=== PATIENT | male | born 1955 | race Caucasian/White ===

== ENCOUNTER 2018-07-21 12:16 | Inpatient (IN) | payer BC, OTHER ==
[~2018-07-21] VITALS: Ht 152.4 cm; Wt 67.7 kg
[2018-07-21 13:22] LABS: CLARITY URINE CLEAR (CLEAR); COLOR URINE YELLOW (YELLOW); KETONES URINE NEGATIVE (NEGATIVE); LEUKOCYTE ESTERASE URINE NEGATIVE (NEGATIVE); NITRITE URINE NEGATIVE (NEGATIVE); OCCULT BLOOD URINE NEGATIVE (NEGATIVE); PROTEIN URINE NEGATIVE (NEGATIVE); SPECIFIC GRAVITY URINE 1.015 (1.005-1.030); UROBILINOGEN URINE 0.2 E.U./dL (0.2-1.0)
[2018-07-21] MEDS ORDERED: MORPHINE SULFATE 4 MG/ML CPJ (NOT FOR IM USE) IV STA (17:32)
[2018-07-21] MEDS ORDERED: ONDANSETRON HCL 4MG/2ML INJ IV STA (17:32)
[2018-07-21] MEDS ORDERED: FAMOTIDINE 20MG/2ML VIAL IV STA (17:32)
[2018-07-21] MEDS ORDERED: LORAZEPAM 2MG/ML CPJ IV ONE (17:45)
[2018-07-21 17:59] LABS: CHLORIDE 110 mEq/L (98-107)
[2018-07-21 18:03] LABS: ETHANOL BLOOD < 10 mg/dL
[2018-07-21 18:05] LABS: PROTHROMBIN TIME 9.9 sec (9.1-11.1)
[2018-07-21 18:08] LABS: BASOPHILS % 0.9 % (0.0-2.0); EOSINOPHILS % 11.6 % (0.0-5.0); HEMATOCRIT. 44.1 % (42.0-52.0); HEMOGLOBIN. 14.6 g/dL (14.0-18.0); LYMPHOCYTES % 25.1 % (20.0-50.0); MEAN CORPUSCULAR HEMOGLOBIN 31.4 pg (28.0-32.0); MEAN CORPUSCULAR VOLUME 95.1 fL (80.0-94.0); MEAN PLATELET VOLUME 9.1 fl (7.4-10.4); MONOCYTES % 5.2 % (2.0-8.0); NEUTROPHILS % 57.2 % (40.0-76.0); PLATELET 282 x1000/uL (130-400); RED BLOOD CELL COUNT 4.64 mill/uL (4.7-6.1); RED CELL DISTRIBUTION WIDTH 13.9 % (11.6-14.6)
[2018-07-21] MEDS ORDERED: ASPIRIN 81MG TABLET PO ONE (18:45)
[2018-07-21] MEDS ORDERED: CLONIDINE 0.1MG TABLET PO PRN (20:45)
[2018-07-21] MEDS ORDERED: ACETAMINOPHEN 325MG TABLET PO PRN (20:45)
[2018-07-21] MEDS ORDERED: MAGNESIUM/ALUMINUM HYDROXIDE/SIMETHICONE 30ML UDC PO PRN (20:45)
[2018-07-21] MEDS ORDERED: ONDANSETRON HCL 4MG/2ML INJ IV PRN (20:45)
[2018-07-21] MEDS ORDERED: DIPHENHYDRAMINE 50MG/ML VIAL IV PRN (20:45)
[2018-07-21] MEDS ORDERED: HYDROMORPHONE HCL/PF 2MG/ML CPJ IV PRN (21:00)
[2018-07-21] MEDS ORDERED: KETOROLAC 30MG/ML VIAL IV PRN (21:00)
[2018-07-22] MEDS ORDERED: ENOXAPARIN 80MG/0.8ML SYR SUBCUT NR (00:30)
[2018-07-22] MEDS: DEXT 5%/0.45% NACL 1000ML 1,000 ML IV SCH ×2 (03:15→20:39)
[2018-07-22 05:26] LABS: BASOPHILS % 0.7 % (0.0-2.0); EOSINOPHILS % 13.7 % (0.0-5.0); HEMATOCRIT. 41.7 % (42.0-52.0); HEMOGLOBIN. 13.7 g/dL (14.0-18.0); LYMPHOCYTES % 16.5 % (20.0-50.0); MEAN CORPUSCULAR HEMOGLOBIN 31.8 pg (28.0-32.0); MEAN CORPUSCULAR VOLUME 96.6 fL (80.0-94.0); MEAN PLATELET VOLUME 9.5 fl (7.4-10.4); MONOCYTES % 6.5 % (2.0-8.0); NEUTROPHILS % 62.6 % (40.0-76.0); PLATELET 242 x1000/uL (130-400); RED BLOOD CELL COUNT 4.32 mill/uL (4.7-6.1); RED CELL DISTRIBUTION WIDTH 14.1 % (11.6-14.6)
[2018-07-22 05:29] LABS: CHLORIDE 112 mEq/L (98-107)
[2018-07-22 09:30] VITALS: BP 151/79
[2018-07-22] MEDS: FAMOTIDINE 20MG/2ML VIAL IV SCH ×2 (09:34→20:32)
[2018-07-22 09:47] LABS: T4 FREE 0.88 ng/dL (0.76-1.46)
[2018-07-22 12:00] VITALS: BP 154/79
[2018-07-22] MEDS: ENOXAPARIN 80MG/0.8ML SYR SUBCUT SCH (13:06)
[2018-07-22] MEDS ORDERED: IOHEXOL-350 100 ML BOTTLE ONE (14:08)
[2018-07-22 15:11] LABS: CREATINE KINASE 96 IU/L (39-308)
[2018-07-22 15:12] LABS: CREATINE KINASE MB FRACTION 1.2 ng/mL (0.5-3.6)
[2018-07-22 16:00] VITALS: BP 145/90
[2018-07-22] MEDS ORDERED: REGADENOSON 0.4 MG/5 ML IV ONE (16:30)
[2018-07-22] MEDS: SODIUM CHLORIDE 0.9% INJ 3ML FLUSH IVF SCH ×2 (19:48→20:39)
[2018-07-22 20:00] VITALS: BP 138/72
[2018-07-23] MEDS: ENOXAPARIN 80MG/0.8ML SYR SUBCUT SCH ×2 (00:23→12:00)
[2018-07-23 01:06] LABS: CREATINE KINASE MB FRACTION 1.2 ng/mL (0.5-3.6)
[2018-07-23 04:05] VITALS: BP 154/76
[2018-07-23] MEDS: SODIUM CHLORIDE 0.9% INJ 3ML FLUSH IVF SCH (05:51)
[2018-07-23 08:30] LABS: CREATINE KINASE 75 IU/L (39-308)
[2018-07-23] MEDS ORDERED: REGADENOSON 0.4 MG/5 ML IV ONE (09:33)
[2018-07-23 10:30] VITALS: BP 146/79
[2018-07-23] MEDS: FAMOTIDINE 20MG/2ML VIAL IV SCH (10:47)
[2018-07-23] MEDS: DEXT 5%/0.45% NACL 1000ML 1,000 ML IV SCH (10:50)
[2018-07-23 15:13] VITALS: BP 146/79
== END 2018-07-23 16:45 | disposition home or self-care (01) | DRG 394 ==
LOC: ER 12:16 → 5WST 19:00 → ENRESERV 07-22 07:11
PROVIDERS: ADMIT Internal Medicine; ATTEND Internal Medicine
DX: K42.9 Umbilical hernia without obstruction or gangrene (principal); I82.411 Acute embolism and thrombosis of right femoral vein; M10.9 Gout, unspecified; E78.5 Hyperlipidemia, unspecified; R07.89 Other chest pain; I10 Essential (primary) hypertension; E78.00 Pure hypercholesterolemia, unspecified; I25.10 Atherosclerotic heart disease of native coronary artery without angina pectoris; Z82.49 Family history of ischemic heart disease and other diseases of the circulatory system; Z98.61 Coronary angioplasty status
CPT/HCPCS: 36415; 71045; 71275; 74176; 78452; 80048; 80061; 80320; 82550; 82553; 83036; 83880; 84439; 84443; 84484; 85379; 93005; 93017; 93306; 93970; 96374; 96375; 99285; A9500; J1650; J2060; J2270; J2405; J2785; J3490; J7042; Q9967; G0480

== ENCOUNTER 2021-03-23 17:23 | Inpatient (IN) | payer BC ==
[~2021-03-23] VITALS: Ht 154.9 cm; Wt 70.9 kg
[2021-03-23 20:13] LABS: BASOPHILS % 0.7 % (0.0-2.0); EOSINOPHILS % 3.2 % (0.0-5.0); HEMATOCRIT. 35.7 % (42.0-52.0); LYMPHOCYTES % 12.7 % (20.0-50.0); MEAN CORPUSCULAR VOLUME 95.2 fL (80.0-94.0); MONOCYTES % 4.5 % (2.0-8.0); NEUTROPHILS % 78.9 % (40.0-76.0); PLATELET 273 x1000/uL (130-400); RED BLOOD CELL COUNT 3.75 mill/uL (4.7-6.1); RED CELL DISTRIBUTION WIDTH 14.6 % (11.6-14.6)
[2021-03-23 20:19] LABS: CHLORIDE 111 mEq/L (98-107)
[2021-03-23] MEDS ORDERED: DIPHENHYDRAMINE 50MG/ML VIAL IV PRN (23:30)
[2021-03-23] MEDS ORDERED: MAGNESIUM/ALUMINUM HYDROXIDE/SIMETHICONE 30ML UDC PO PRN (23:30)
[2021-03-23] MEDS ORDERED: DOCUSATE SODIUM 100MG CAPSULE PO PRN (23:30)
[2021-03-23] MEDS ORDERED: GUAIFENESIN 200MG/10ML SUGAR FREE UDC PO PRN (23:30)
[2021-03-23] MEDS ORDERED: LORAZEPAM 2MG/ML CPJ IV PRN (23:30)
[2021-03-23] MEDS ORDERED: ONDANSETRON HCL 4MG/2ML INJ IV PRN (23:30)
[2021-03-23] MEDS ORDERED: HYDRALAZINE 20MG/ML VIAL IV PRN (23:30)
[2021-03-23] MEDS ORDERED: IPRATROPIUM/ALBUTEROL 0.5-3(2.5)MG/3ML NEB HHN PRN (23:30)
[2021-03-23] MEDS ORDERED: ACETAMINOPHEN 325MG TABLET PO PRN (23:30)
[2021-03-23] MEDS ORDERED: MORPHINE SULFATE 2 MG/ML CPJ (NOT FOR IM USE) IV PRN (23:30)
[2021-03-23] MEDS ORDERED: CLONIDINE 0.1MG TABLET PO PRN (23:30)
[2021-03-23] MEDS ORDERED: NALOXONE HCL 0.4MG/ML VIAL IV PRN (23:45)
[2021-03-24] MEDS: PIPERACILLIN/TAZ 3.375G PREMIX 50 ML IV NR ×3 (00:13→00:29)
[2021-03-24] MEDS: SODIUM CHLORIDE 0.45% 1,000 ML IV SCH (00:27)
[2021-03-24 00:58] LABS: CLARITY URINE CLEAR (CLEAR); COLOR URINE YELLOW (YELLOW); KETONES URINE NEGATIVE (NEGATIVE); LEUKOCYTE ESTERASE URINE NEGATIVE (NEGATIVE); NITRITE URINE NEGATIVE (NEGATIVE); OCCULT BLOOD URINE NEGATIVE (NEGATIVE); PROTEIN URINE NEGATIVE (NEGATIVE); SPECIFIC GRAVITY URINE 1.021 (1.005-1.030); UROBILINOGEN URINE 0.2 E.U./dL (0.2-1.0)
[2021-03-24 01:35] VITALS: BP 132/69
[2021-03-24] MEDS ORDERED: IOHEXOL-300 100 ML BOTTLE ONE (02:40)
[2021-03-24] MEDS: SODIUM CHLORIDE 0.9% INJ 3ML FLUSH IVF SCH ×3 (05:24→22:36)
[2021-03-24] MEDS ORDERED: ATOR40TA70 PO (06:37)
[2021-03-24] MEDS ORDERED: APIX5TAB PO (06:37)
[2021-03-24 07:12] LABS: BASOPHILS % 0.9 % (0.0-2.0); EOSINOPHILS % 9.6 % (0.0-5.0); HEMATOCRIT. 29.4 % (42.0-52.0); HEMOGLOBIN. 9.9 g/dL (14.0-18.0); LYMPHOCYTES % 22.9 % (20.0-50.0); MEAN CORPUSCULAR HEMOGLOBIN 31.9 pg (28.0-32.0); MEAN PLATELET VOLUME 9.2 fl (7.4-10.4); MONOCYTES % 6.8 % (2.0-8.0); NEUTROPHILS % 59.8 % (40.0-76.0); PLATELET 214 x1000/uL (130-400); RED BLOOD CELL COUNT 3.09 mill/uL (4.7-6.1); RED CELL DISTRIBUTION WIDTH 14.4 % (11.6-14.6)
[2021-03-24 07:14] LABS: CHLORIDE 113 mEq/L (98-107)
[2021-03-24 08:00] VITALS: BP 125/68
[2021-03-24] MEDS ORDERED: PNEUMOCOCCAL 23-VAL P-SAC VAC 0.5 ML IM ONE (08:00)
[2021-03-24] MEDS: HYDROCODONE/ACETAMINOPHEN 5/325MG TABLET PO PRN (10:55)
[2021-03-24 12:00] VITALS: BP 126/63
[2021-03-24 16:00] VITALS: BP 120/60
[2021-03-24 20:00] VITALS: BP 100/62
[2021-03-25] VITALS: BP 114/62
[2021-03-25] MEDS: SODIUM CHLORIDE 0.45% 1,000 ML IV SCH (01:16)
[2021-03-25 04:00] VITALS: BP 135/69
[2021-03-25] MEDS: SODIUM CHLORIDE 0.9% INJ 3ML FLUSH IVF SCH ×3 (05:57→22:00)
[2021-03-25 06:38] LABS: CHLORIDE 111 mEq/L (98-107)
[2021-03-25 06:50] LABS: BASOPHILS % 0.9 % (0.0-2.0); EOSINOPHILS % 10.6 % (0.0-5.0); HEMATOCRIT. 27.2 % (42.0-52.0); HEMOGLOBIN. 9.3 g/dL (14.0-18.0); LYMPHOCYTES % 17.4 % (20.0-50.0); MEAN CORPUSCULAR HEMOGLOBIN 32.5 pg (28.0-32.0); MEAN CORPUSCULAR VOLUME 95.5 fL (80.0-94.0); MEAN PLATELET VOLUME 9.2 fl (7.4-10.4); MONOCYTES % 4.7 % (2.0-8.0); NEUTROPHILS % 66.4 % (40.0-76.0); PLATELET 198 x1000/uL (130-400); RED BLOOD CELL COUNT 2.85 mill/uL (4.7-6.1); RED CELL DISTRIBUTION WIDTH 14.1 % (11.6-14.6)
[2021-03-25 08:00] VITALS: BP 135/68
[2021-03-25] MEDS: PANTOPRAZOLE SODIUM 40 MG/VIAL IV SCH (09:22)
[2021-03-25 12:00] VITALS: BP 140/65
[2021-03-25] MEDS: HYDROCODONE/ACETAMINOPHEN 5/325MG TABLET PO PRN (13:01)
[2021-03-25 16:00] VITALS: BP 130/73
[2021-03-25 20:00] VITALS: BP 137/71
[2021-03-26] VITALS: BP 112/73
[2021-03-26] MEDS: SODIUM CHLORIDE 0.45% 1,000 ML IV SCH (02:00)
[2021-03-26 04:00] VITALS: BP 143/83
[2021-03-26] MEDS: SODIUM CHLORIDE 0.9% INJ 3ML FLUSH IVF SCH ×2 (06:59→14:00)
[2021-03-26 07:17] LABS: BASOPHILS % 0.9 % (0.0-2.0); EOSINOPHILS % 7.7 % (0.0-5.0); HEMATOCRIT. 28.8 % (42.0-52.0); HEMOGLOBIN. 9.8 g/dL (14.0-18.0); LYMPHOCYTES % 16.2 % (20.0-50.0); MEAN CORPUSCULAR HEMOGLOBIN 32.3 pg (28.0-32.0); MEAN PLATELET VOLUME 9.2 fl (7.4-10.4); NEUTROPHILS % 70.2 % (40.0-76.0); PLATELET 231 x1000/uL (130-400); RED BLOOD CELL COUNT 3.03 mill/uL (4.7-6.1); RED CELL DISTRIBUTION WIDTH 14.1 % (11.6-14.6)
[2021-03-26 07:57] LABS: CHLORIDE 108 mEq/L (98-107)
[2021-03-26 08:00] VITALS: BP 127/69
[2021-03-26 08:04] LABS: TOTAL IRON BINDING CAPACITY 298 ug/dL (250-450)
[2021-03-26] MEDS: PANTOPRAZOLE SODIUM 40 MG/VIAL IV SCH (09:04)
[2021-03-26 12:00] VITALS: BP 121/62
[2021-03-26] MEDS: HYDROCODONE/ACETAMINOPHEN 5/325MG TABLET PO PRN (12:46)
[2021-03-26 13:54] VITALS: BP 20/121
== END 2021-03-26 16:28 | disposition home or self-care (01) | DRG 378 ==
LOC: ER 17:23 → 6EST 23:08 → SUPCPDRO 23:27 → ENRESERV 03-24 00:24
PROVIDERS: ADMIT Internal Medicine; ATTEND Internal Medicine
DX: K57.91 Diverticulosis of intestine, part unspecified, without perforation or abscess with bleeding (principal); R65.10 Systemic inflammatory response syndrome (SIRS) of non-infectious origin without acute organ dysfunction; E46 Unspecified protein-calorie malnutrition; K64.4 Residual hemorrhoidal skin tags; K62.5 Hemorrhage of anus and rectum; D53.9 Nutritional anemia, unspecified; I25.10 Atherosclerotic heart disease of native coronary artery without angina pectoris; K76.0 Fatty (change of) liver, not elsewhere classified; I10 Essential (primary) hypertension; E78.5 Hyperlipidemia, unspecified; N20.0 Calculus of kidney; N28.1 Cyst of kidney, acquired; Z98.61 Coronary angioplasty status; Z86.718 Personal history of other venous thrombosis and embolism; Z79.01 Long term (current) use of anticoagulants; Z82.49 Family history of ischemic heart disease and other diseases of the circulatory system; Z23 Encounter for immunization; Z68.29 Body mass index [BMI] 29.0-29.9, adult
CPT/HCPCS: 36415; 74177; 76700; 78278; 80048; 80053; 81003; 82607; 82728; 82746; 83540; 83550; 83605; 84484; 85018; 85025; 85044; 86850; 86900; 90732; 93005; 93970; 99285; A9560; C9113; J2543; Q9967